=== PATIENT | male | born 1965 | race Caucasian/White ===

== ENCOUNTER 2016-09-22 09:02 | Day surgery (SDC) | payer BC, OTHER ==
[~2016-09-22 09:02] MED LIST: PROPOFOL 500 MG/50 ML EMU IV ONE
[2016-09-22 10:32] VITALS: O2SAT 98
[2016-09-22 10:54] VITALS: BP 101/80; PULSE 57; RESP 18; TEMP 976
[2016-09-22] MEDS: KETOROLAC TROMETHAMINE 30 MG/ML SOL ONE (10:54)
== END 2016-09-22 11:16 | disposition home or self-care (01) ==
LOC: SURG 09:02
PROVIDERS: ATTEND Surgery
DX: Z12.11 Encounter for screening for malignant neoplasm of colon (principal)
CPT/HCPCS: 45378; J1885; J2704